=== PATIENT | female | born 1985 | race Hispanic/Latino ===

== ENCOUNTER 2018-09-22 10:55 | Inpatient (IN) | payer BC ==
[~2018-09-22] VITALS: Ht 157.5 cm; Wt 75.3 kg
[2018-09-22 12:07] LABS: BASOPHILS # (AUTO) 0.1 (0.0-0.1); BASOPHILS % 0.9 % (0.0-1.0); EOSINOPHILS # (AUTO) 0.2 (0.0-0.4); EOSINOPHILS % 4.3 % (0.0-6.0); HEMATOCRIT 25.2 % (34.2-44.1); LYMPHOCYTES # (AUTO) 1.9 (1.0-3.2); MEAN CORPUSCULAR HEMOGLOBIN 16.8 pg (28-32); MEAN CORPUSCULAR HGB CONC 25.4 g/dL (31-35); MEAN CORPUSCULAR VOLUME 66.1 fL (81-99); MONOCYTES # (AUTO) 0.5 (0.2-0.8); MONOCYTES % 8.3 % (4.4-11.3); NEUTROPHILS # (AUTO) 2.9 (2.1-6.9); NEUTROPHILS % 52.1 % (38.7-80.0); PLATELET COUNT 335 x10e3/uL (140-360); RED BLOOD COUNT 3.81 x10e6/uL (3.6-5.1); RED CELL DISTRIBUTION WIDTH 17.7 % (11.7-14.4)
[2018-09-22 12:15] LABS: HEMOGLOBIN 6.4 g/dL (12.0-16.0)
[2018-09-22 12:18] LABS: ALANINE AMINOTRANSFERASE 9 IU/L (0-55); ALBUMIN 3.8 g/dL (3.5-5.0); ALBUMIN/GLOBULIN RATIO 1.1 (0.8-2.0); ALKALINE PHOSPHATASE 43 IU/L (40-150); ANION GAP 11.6 mmol/L (8-16); BLOOD UREA NITROGEN 9 mg/dL (7-26); BUN/CREATININE RATIO 12 (6-25); CALCIUM 9.3 mg/dL (8.4-10.2); CARBON DIOXIDE 22 mmol/L (22-29); CHLORIDE 106 mmol/L (98-107); CREATININE, SERUM 0.74 mg/dL (0.57-1.11); EST GLOMERULAR FILTRATION RATE > 60 ML/MIN (60-); GLUCOSE 109 mg/dL (74-118); POTASSIUM 3.6 mmol/L (3.5-5.1); SODIUM 136 mmol/L (136-145)
[2018-09-22 12:21] LABS: PREGNANCY TEST, URINE NEGATIVE (NEGATIVE)
[2018-09-22 12:28] LABS: CLARITY,URINE CLEAR (CLEAR); COLOR,URINE YELLOW (YELLOW)
[2018-09-22 12:29] LABS: BACTERIA,URINE FEW /HPF; BILIRUBIN,URINE NEGATIVE (NEGATIVE); EPITHELIAL CELLS,URINE FEW /LPF; KETONES,URINE NEGATIVE (NEGATIVE); LEUKOCYTE ESTERASE ,URINE NEGATIVE (NEGATIVE); NITRITE,URINE NEGATIVE (NEGATIVE); PROTEIN,URINE DIPSTICK NEGATIVE (NEGATIVE); RBC,URINE 0-5 /HPF (0-5); URINE UROBILINOGEN 0.2 mg/dL (0.2 - 1); WBC,URINE (MAN) 0-5 /HPF (0-5)
[2018-09-22] MEDS ORDERED: SODIUM CHLORIDE 0.9% 250ML 250 ML IV ONE (12:30)
[2018-09-22] MEDS: SODIUM CHLORIDE 0.9% 1000ML 1,000 ML IV SCH ×2 (13:36→21:36)
[2018-09-22] MEDS ORDERED: HYDROXYZINE HCL25 MG PO (13:40)
[2018-09-22] MEDS ORDERED: ONDANSETRON HCL INJ 2MG/ML 2ML 2 MG/ML VIAL IV PRN (13:45)
--- NOTE | 2018-09-22 14:50 | NUR ---
Patient transferred to unit from ER. Patient arrived via stretcher. patient c/o weakness and fatigue. HGB noted at 6.4. Patient ambulates on her own. No c/o pain at this time. Lung wilson clear to auscultation. Bowel sounds present x4. No shortness of breath noted at rest or exertion. Right AC IV in place. Patient to receive a blood transfusion. Family at bedside.
[2018-09-22 15:17] VITALS: BP 142/80
[2018-09-22 15:19] VITALS: BP 142/80
[2018-09-22] MEDS ORDERED: HYDROXYZINE HCL 25 MG TAB PO PRN (15:30)
[2018-09-22 15:57] VITALS: BP 142/80
[2018-09-22] MEDS ORDERED: SODIUM CHLORIDE 0.9% 250ML 250 ML ONE ×2 (16:13→23:54)
--- NOTE | 2018-09-22 18:10 | NUR ---
Patient c/o pain. Patient states "I suffer from migraines." Call placed to MD. Awaiting call back for orders
[2018-09-22] MEDS ORDERED: HYDROCODONE/APAP 5MG-325MG TAB PO PRN (18:30)
[2018-09-22] MEDS ORDERED: LORAZEPAM INJ 2 MG/ML VIAL IV PRN (18:30)
[2018-09-22] MEDS ORDERED: ACETAMINOPHEN 325 MG TAB PO PRN (18:30)
[2018-09-22] MEDS ORDERED: HYDRALAZINE HCL 20 MG/ML VIAL IV PRN (18:30)
[2018-09-22] MEDS ORDERED: LORAZEPAM 0.5 MG TAB PO PRN (19:00)
[2018-09-22 20:00] VITALS: BP_SYST 109; BP_SYST 119; BP_DIAS 68; BP_DIAS 69
--- NOTE | 2018-09-22 21:05 | NUR ---
REPORT GIVEN TO MORALES WINTER
[2018-09-22 22:46] VITALS: BP 142/80
[2018-09-23] MEDS: SODIUM CHLORIDE 0.9% 1000ML 1,000 ML IV SCH (03:36)
[2018-09-23 04:00] VITALS: BP 121/78
[2018-09-23 04:20] LABS: BASOPHILS # (AUTO) 0.1 (0.0-0.1); EOSINOPHILS # (AUTO) 0.4 (0.0-0.4); EOSINOPHILS % 5.6 % (0.0-6.0); HEMATOCRIT 30.7 % (34.2-44.1); HEMOGLOBIN 8.7 g/dL (12.0-16.0); LYMPHOCYTES % 42.5 % (18.0-39.1); MEAN CORPUSCULAR HEMOGLOBIN 19.1 pg (28-32); MEAN CORPUSCULAR HGB CONC 28.3 g/dL (31-35); MEAN CORPUSCULAR VOLUME 67.5 fL (81-99); MONOCYTES # (AUTO) 0.7 (0.2-0.8); MONOCYTES % 10.5 % (4.4-11.3); NEUTROPHILS # (AUTO) 2.8 (2.1-6.9); NEUTROPHILS % 40.1 % (38.7-80.0); PLATELET COUNT 327 x10e3/uL (140-360); RED BLOOD COUNT 4.55 x10e6/uL (3.6-5.1); RED CELL DISTRIBUTION WIDTH 19.7 % (11.7-14.4)
[2018-09-23 04:31] LABS: ALANINE AMINOTRANSFERASE 8 IU/L (0-55); ALBUMIN 3.5 g/dL (3.5-5.0); ALBUMIN/GLOBULIN RATIO 1.1 (0.8-2.0); ALKALINE PHOSPHATASE 38 IU/L (40-150); ANION GAP 9.6 mmol/L (8-16); BLOOD UREA NITROGEN 7 mg/dL (7-26); BUN/CREATININE RATIO 10 (6-25); CALCIUM 9.2 mg/dL (8.4-10.2); CARBON DIOXIDE 24 mmol/L (22-29); CHLORIDE 106 mmol/L (98-107); CHOL/HDL RATIO 2.5 (3.0-3.6); CHOLESTEROL 132 MD/DL (0-199); EST GLOMERULAR FILTRATION RATE > 60 ML/MIN (60-); GLUCOSE 92 mg/dL (74-118); HDL CHOLESTEROL 53 MG/DL (40-60); LDL CHOLESTEROL 64 MG/DL (60-130); POTASSIUM 3.6 mmol/L (3.5-5.1); SODIUM 136 mmol/L (136-145); TRIGLYCERIDES 74 MG/DL (0-149)
[2018-09-23 04:51] LABS: FREE T4 (FREE THYROXINE) 1.01 ng/dL (0.9-1.8); THYROID STIMULATING HORMONE 2.576 uIU/mL (0.350-4.940)
[2018-09-23 05:01] LABS: FERRITIN 2.23 ng/mL (4.63-204.00)
[2018-09-23 05:21] LABS: FOLATE 9.8 ng/mL (7.0-15.4)
[2018-09-23] MEDS ORDERED: PANTOPRAZOLE SOD 40 MG TABEC PO SCH ×2 (06:00→07:30)
--- NOTE | 2018-09-23 07:19 | NUR ---
Rcvd patient in report this am. Patient is asleep in bed at this time. No s/s of distress noted
[2018-09-23] MEDS ORDERED: FAMOTIDINE 20 MG TAB PO SCH (07:30)
[2018-09-23] MEDS ORDERED: FERROUS SULFATE 325 MG TAB PO SCH (08:00)
[2018-09-23 08:01] VITALS: BP 107/61
[2018-09-23] MEDS ORDERED: ASCORBIC ACID 500 MG TAB PO SCH (09:00)
[2018-09-23] MEDS ORDERED: MULTIVITAMINS/MINERALS TAB PO SCH (09:00)
[2018-09-23 09:32] VITALS: BP 107/61
[2018-09-23] MEDS ORDERED: PROTONIX40 MG/ML PO (09:36)
[2018-09-23] MEDS ORDERED: ASCORBIC ACID500 MG PO (09:36)
[2018-09-23] MEDS ORDERED: FERROUS SULFAT325 MG PO (09:36)
[2018-09-23] MEDS ORDERED: Multivitamins/Minerals PO (09:36)
--- NOTE | 2018-09-23 10:08 | NUR ---
IV removed at this time. Pressure dressing applied.
--- NOTE | 2018-09-23 10:11 | NUR ---
Patient is AAOx3. Patient lung wilson clear to auscultation. Bowel sounds present x4. NO c/o pain. No bleeding noted. Patient received 2 units of blood and feels much better.
[2018-09-23] MEDS ORDERED: ONDANSETRON HCL 4 MG ORAL DISINTEGRATING TAB PO PRN (10:15)
--- NOTE | 2018-09-23 10:22 | NUR ---
Patient discharged from facility to home. Patient assisted out via wheelchair. Reviewed all discharge paperwork, follow up appts and RX's given. patient given a list of OB dr's for f/u appt
--- NOTE | 2018-09-24 04:06 | Discharge Summary ---
ADMISSION DIAGNOSES: Acute blood loss anemia secondary to menorrhagia, microcytic/iron deficiency anemia, menorrhagia, and anxiety. DISCHARGE DIAGNOSES: Acute blood loss anemia secondary to menorrhagia, microcytic/iron deficiency anemia, menorrhagia, and anxiety. HISTORY: The patient has a history of menorrhagia. SURGICAL HISTORY: x2. FAMILY HISTORY: Noncontributory. SOCIAL HISTORY: Occasional alcohol use. HOSPITAL COURSE: A 33-year-old female feeling weak for one week now. She admits to starting her period and her first 3 days were very heavy. She was told by her primary care doctor to come to the ER for anemia. On admission, her hemoglobin was 6.4. The patient received 2 units of PRBCs and hemoglobin came up to 8.7. She is now only spotting and is feeling much better. She was given a prescription for Protonix, multivitamin, iron, and vitamin C. She will follow up with primary care in 1-2 weeks and was told to follow up with [facility] as soon as possible. Vital signs stable, patient afebrile. The patient understands discharge instructions and agrees to plan. Dictated by Jena Martin NP MD JOSEPH Weaver/GIBRAN /[id number]
== END 2018-09-23 10:22 | disposition home or self-care (01) | DRG 812 ==
LOC: ER 10:55 → ERHOLD 13:45 → MED/SURG 14:20
PROVIDERS: ADMIT Internal Medicine; ATTEND Internal Medicine
PROC: 30233N1 Transfusion of Nonautologous Red Blood Cells into Peripheral Vein, Percutaneous Approach (ICD-10-PCS; principal; 2018-09-22)
DX: D62 Acute posthemorrhagic anemia (principal); N92.0 Excessive and frequent menstruation with regular cycle; F41.9 Anxiety disorder, unspecified; D50.9 Iron deficiency anemia, unspecified
CPT/HCPCS: 36415; 80053; 80061; 81001; 81025; 82607; 82728; 82746; 83036; 83540; 83735; 84439; 84443; 84466; 85025; 86850; 86900; 86920; 99284; J2405; J7030; J7050; P9016